=== PATIENT | male | born 1995 | race Two or more races ===

== ENCOUNTER 2018-04-04 22:29 | Emergency (ER) | payer SELFPAY ==
[2018-04-04] MEDS ORDERED: Ibuprofen 600 MG Tab PO ONE (23:51)
--- NOTE | 2018-04-04 23:55 | EDM.PDOC ---
ED HPI GENERAL MEDICAL PROBLEM - General Chief Complaint: ENT Problem Stated Complaint: TOOTHACHE Time Seen by Provider: 04/04/18 23:39 Source of Information: Reports: Patient, RN Notes Reviewed, Significant Other ( Girlfriend) History Limitations: Reports: No Limitations - History of Present Illness INITIAL COMMENTS - FREE TEXT/NARRATIVE: The patient states that he has had an upper right toothache for the past 3 months, likely due to a cavity. No injury to the tooth. No recent fever. No recent facial swelling. He has had an unusual taste in his mouth. He states that he has been taking ibuprofen 800 mg every morning, for the past 2 weeks. He states the last time he saw a dentist was perhaps 10 years ago, however, he states that he has an appointment to see a dentist this coming Sunday, 2018. The patient does not have a PCP. Tooth/Teeth Pain Score (Numeric/FACES): 7 - Related Data Allergies Allergy/AdvReac Type Severity Reaction Status Date / Time No Known Allergies Allergy Verified 04/04/18 22:37 Home Meds: Home Meds . [No Known Home Meds] 04/04/18 [History] Past Medical History Endocrine/Metabolic History: Reports: Obesity/BMI 30+ Social & Family History - Tobacco Use Smoking Status *Q: Never Smoker - Caffeine Use Caffeine Use: Reports: None - Alcohol Use Alcohol Use History: Yes Alcohol Use Frequency: Socially - Recreational Drug Use Recreational Drug Use: No - Living Situation & Occupation Living situation: Reports: Single, Other (with a friend) Occupation: Employed ([employer]) ED ROS ENT - Review of Systems Review Of Systems: ROS reveals no pertinent complaints other than HPI. ED EXAM, ENT - Physical Exam Exam: See Below Exam Limited By: No Limitations General Appearance: Alert, WD/WN, No Apparent Distress Eye Exam: Bilateral Eye: EOMI, PERRL Ears: Normal External Exam, Normal Canal, Hearing Grossly Normal, Normal TMs Nose: Normal Inspection, Normal Mucousa, No Blood Mouth/Throat: Normal Inspection, Normal Gums, Normal Lips, Normal Oropharynx, Other (Tooth #3 (the tooth of concern) with a large [place]. Significant gingival swelling in the area, although without any pointing. Tooth #19 absent.) Head: Atraumatic, Normocephalic Neck: Normal Inspection, Supple, Non-Tender, Full Range of Motion. No: Lymphadenopathy (L), Lymphadenopathy (R) Course - Vital Signs Last Recorded V/S: Last Vital Signs Temp 37.0 C 04/04/18 22:34 Pulse 98 04/04/18 22:34 Resp 18 04/04/18 22:34 BP 136/85 04/04/18 22:34 Pulse Ox 99 04/04/18 22:34 - Orders/Labs/Meds Meds: Medications Discontinued Medications Generic Name Dose Route Start Last Admin Trade Name Sea PRN Reason Stop Dose Admin Ibuprofen 600 mg 04/04/18 23:51 04/05/18 00:01 Motrin PO 04/04/18 23:52 600 mg ONETIME ONE Administration - Re-Assessments/Exams Free Text/Narrative Re-Assessment/Exam: 04/04/18 23:51 The patient appears to have a significant cavity and associated dental infection of tooth #3. I will prescribe a 10-day course of oral penicillin via [facility], although the patient will be following up with a dentist this coming 04/09/18. In addition, instead of taking 800 mg of ibuprofen every morning, I would like him to start taking 600 mg every 8 hours. This should give him better [id number] pain control. Departure - Departure Time of Disposition: 23:52 Disposition: Home, Self-Care 01 Condition: Good Clinical Impression: Dental infection - Discharge Information *PRESCRIPTION DRUG MONITORING PROGRAM REVIEWED*: Not Applicable *COPY OF PRESCRIPTION DRUG MONITORING REPORT IN PATIENT ANILA: Not Applicable Instructions: Dental Abscess, [id number] Referrals: PCP,None [Primary Care Provider] - Forms: ED Department Discharge Additional Instructions: You were seen in the emergency room for an upper right toothache on and off for the past 3 months. On examination, you appear to have a significant cavity and dental infection of tooth #3. You have been prescribed the antibiotic penicillin through [facility]. Take one tablet of penicillin every 6 hours, as prescribed. Finish the entire prescription unless told otherwise by your dentist. In addition to penicillin, we also recommend that you take [id number] ibuprofen, 3 tablets (600 mg) every 8 hours. This should give you better around- the-clock pain relief than 800 mg once a day. It is imperative that you follow-up with your dentist at your previously scheduled appointment this coming 04/09/2018. If any other problems, please do not hesitate to return to the ER.
== END 2018-04-05 00:05 | disposition home or self-care (01) ==
LOC: JD.ED 22:29
DX: K04.7 Periapical abscess without sinus (principal)
CPT/HCPCS: 99282; A9270

== ENCOUNTER 2024-08-02 02:41 | Emergency (ER) | payer SELFPAY ==
[2024-08-02 03:37] LABS: BASOPHILS ABSOLUTE AUTO 0.1 K/mm3 (0.0-0.2); BASOPHILS PERCENT AUTO 0.5 % (0.0-1.0); EOSINOPHILS PERCENT AUTO 0.1 % (0.0-6.0); HEMATOCRIT 45.9 % (42.0-52.0); HEMOGLOBIN 15.4 gm/dl (14.0-18.0); IMMATURE GRAN ABSOLUTE AUTO 0.01 K/mm3 (0.00-0.05); IMMATURE GRAN PERCENT AUTO 0.1 % (0.0-0.4); LYMPHOCYTES ABSOLUTE AUTO 1.7 K/mm3 (1.0-4.8); LYMPHOCYTES PERCENT AUTO 18.1 % (24.0-44.0); MEAN CORPUSCULAR HGB CONC 33.6 g/dl (32.0-36.0); MEAN CORPUSCULAR VOLUME 89.3 fl (83.0-99.0); MONOCYTES ABSOLUTE AUTO 0.9 K/mm3 (0.0-0.8); MONOCYTES PERCENT AUTO 9.7 % (0.0-8.0); NEUTROPHILS ABSOLUTE AUTO 6.8 K/mm3 (1.8-7.7); NEUTROPHILS PERCENT AUTO 71.5 % (41.0-71.0); PLATELET COUNT,PLT 281 K/mm3 (150-400); RED BLOOD CELL COUNT 5.14 M/mm3 (4.52-5.90)
[2024-08-02 03:55] LABS: A/G RATIO 1.2 (1-2); ALBUMIN 4.4 g/dl (3.4-5.0); ANION GAP 13.2 (5-15); BILIRUBIN TOTAL 1.1 mg/dL (0.2-1.0); BUN/CREATININE RATIO 6.7 (14-18); CALCIUM 9.6 mg/dL (8.5-10.1); CREATININE 0.9 mg/dL (0.7-1.3); EST CRCL DRUG DOSING (CG) 131.73 mL/min; MAGNESIUM 1.6 mg/dL (1.8-2.4); POTASSIUM,K 4.2 mEq/L (3.5-5.1); PROTEIN TOTAL,TP 8.2 g/dl (6.4-8.2)
[2024-08-02] MEDS: Magnesium Oxide 400 MG Tab PO ONE (04:24)
== END 2024-08-02 04:35 | disposition home or self-care (01) ==
LOC: JD.ED 02:41
DX: F10.10 Alcohol abuse, uncomplicated (principal); E66.9 Obesity, unspecified; Z79.899 Other long term (current) drug therapy; Z87.09 Personal history of other diseases of the respiratory system; Z68.41 Body mass index [BMI] 40.0-44.9, adult
CPT/HCPCS: 36415; 71045; 80053; 80307; 83735; 85025; 93005; 99285; A9270; 93010; 99283

== ENCOUNTER 2024-08-03 03:10 | Emergency (ER) | payer SELFPAY ==
[2024-08-03 04:38] LABS: APPEARANCE,URINE CLEAR (Clear); BILIRUBIN,URINE 1+ (Negative); COLOR,URINE DARK YELLOW (Yellow); GLUCOSE,URINE NEGATIVE (Negative); KETONES,URINE TRACE (Negative); LEUKOCYTE ESTERASE,URINE NEGATIVE (Negative); NITRITE,URINE NEGATIVE (Negative); OCCULT BLOOD,URINE 1+ (Negative); PROTEIN,URINE 1+ (Negative); UROBILINOGEN,URINE 0.2 (0.2-1.0)
[2024-08-03 04:50] LABS: RBC,URINE 0-5 /hpf (0-5); WBC,URINE 0-5 /hpf (0-5)
[2024-08-03 04:51] LABS: BACTERIA,URINE FEW /hpf (FEW); EPITHELIAL CELLS,URINE 0-5 /hpf (0-5); HYALINE CASTS,URINE 0-5 /lpf (0-5); MUCUS,URINE MODERATE /hpf (FEW)
== END 2024-08-03 05:05 | disposition home or self-care (01) ==
LOC: JD.ED 03:10
DX: L98.9 Disorder of the skin and subcutaneous tissue, unspecified (principal); R82.998 Other abnormal findings in urine; E66.9 Obesity, unspecified; Z86.16 Personal history of COVID-19; Z68.41 Body mass index [BMI] 40.0-44.9, adult
CPT/HCPCS: 81001; 99283